=== PATIENT | male | born 1940 | race Caucasian/White ===

== ENCOUNTER 2016-04-13 12:07 | Inpatient (IN) | payer OTHER ==
[2016-04-13 13:15] LABS: % IMMATURE GRANULYOCYTES 0.6 % (0.0-1.1); ABSOLUTE IMMATURE GRANULOCYTES 0.05 10^3/uL (0.00-0.10); ADD DIFF? NO; ADD MORPH? NO; ADD SCAN? NO; ATYPICAL LYMPHOCYTE FLAG 0 (0-99); FRAGMENT RBC FLAG 0 (0-99); HEMATOCRIT 51.8 % (40.0-51.0); HEMOGLOBIN 17.2 g/dL (13.7-17.5); LEFT SHIFT FLG 0 (0-99); LIPEMIA HEMOLYSIS FLAG 80 (0-99); MEAN CELL HEMOGLOBIN 30.1 pg (27.9-34.1); MEAN CELL HEMOGLOBIN CONCENTR. 33.2 g/dL (32.4-36.7); MEAN CELL VOLUME 90.7 fL (81.5-99.8); PLATELET CLUMPS FLAG 0 (0-99); PLATELET COUNT 181 10^3/uL (150-400); RED BLOOD CELL COUNT 5.71 10^6/uL (4.40-6.38); RED CELL DISTRIBUTION WIDTH 14.2 % (11.5-15.2)
[2016-04-13 13:31] LABS: INR 1.05 (0.83-1.16); PROTIME(PATIENT) 13.4 SEC (12.0-15.0)
[2016-04-13 13:35] LABS: ALANINE AMINOTRANSFERASE 31 IU/L (21-72); ALBUMIN 3.9 g/dL (3.5-5.0); ALKALINE PHOSPHATASE 85 IU/L (38-126); ANION GAP 14 mEq/L (8-16); ASPARTATE AMINOTRANSFERASE 24 IU/L (17-59); CALCIUM 9.4 mg/dL (8.5-10.4); CARBON DIOXIDE 25 mEq/l (22-31); CHLORIDE 101 mEq/L (97-110); CREATININE 2.7 mg/dL (0.7-1.3); GLOMERULAR FILTRATION RATE 23; GLUCOSE 213 mg/dL (70-100); POTASSIUM 4.6 mEq/L (3.5-5.2); SODIUM 140 mEq/L (134-144); TOTAL PROTEIN 7.7 g/dL (6.3-8.2)
[2016-04-13 13:42] LABS: COLOR YELLOW; LEUKOCYTE ESTERASE,URINE NEGATIVE (NEGATIVE); NITRITE,URINE NEGATIVE (NEGATIVE)
--- NOTE | 2016-04-13 13:47 | UCPHY ---
H & P Patient Type: New Chief Complaint Nursing Narrative: ALTERED MENTAL STATUS NOTICED BY FAMILY LAST NIGHT AT 1030PM, C/O GARBLED SPEECH AND MISIDENTIFYING OBJECTS, BIZZARRE BEHAVIOR. PT DENIES PAIN, DENIES WEAKNESS. 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 They noticed last night that he seemed confused he kept saying he was going to go to bed but remained in his chair and repeated himself several times. They also noticed that he seemed to have a hard time word-finding. The denied any slurred speech or new extremity weakness. He states he feels fine and denies pain as well as denies any confusion at this time. The family has also noticed that he has had bilateral leg swelling. Review of systems-not entirely reliable secondary to patient's clinical condition Per family Review of systems General no fever no chills no weakness HEENT no eye pain no eye discharge. No eye redness, no sore throat Respiratory occasional cough, occasional shortness of breath Cardiac no chest pain, positive peripheral edema GI no abdominal pain, no diarrhea, no constipation, no nausea, no vomiting no flank pain, no hematuria, no dysuria Musculoskeletal no myalgias, no joint pain Heme no easy bruising, no easy bleeding Endo positive polyuria, no polydipsia Skin no rashes, no pruritus Neuro no syncope, no dizziness, no headaches Psych is no suicidal ideation, no homicidal ideation Source: Patient, Family Exam Limitations: Clinical condition - Personal History Current Tetanus/Diphtheria Vaccine: Unsure Current Tetanus Diphtheria and Acellular Pertussis (TDAP): Unsure - Medical/Surgical History Hx Asthma: No Hx Chronic Respiratory Disease: No Hx Diabetes: Yes Hx Cardiac Disease: Yes Hx Renal Disease: Yes Hx HIV/AIDS: No Hx Splenectomy or Spleen Trauma: No Other PMH: CVA, hypertension, aortic stenosis, type 2 diabetes, chronic kidney disease, BPH - Family History Significant Family History: No pertinent family hx - Social History Smoking Status: Never smoked Alcohol Use: None Drug Use: None - Physical Exam Exam: 75-year-old male very obese in no acute distress nontoxic appearance afebrile Atraumatic normocephalic Extraocular muscles intact, anicteric Neck supple, no JVD Oropharynx dry mucosa, no erythema no exudate Lungs-clear to auscultation diminished at the bases Heart regular rate and rhythm Abdomen obese bowel sounds present soft nontender Extremities 2+ pitting edema bilateral lower extremities Neuro Alert, left upper extremity and left lower extremity residual motor deficit from 2013 CVA Patient noted to have difficulty with word finding, sometimes repetitive speech and difficulty following simple instructions No new focal weakness noted Constitutional: Initial Vital Signs Temperature (C) 37.1 C 04/13/16 12:36 Heart Rate 79 04/13/16 12:36 Respiratory Rate 18 04/13/16 12:36 Blood Pressure 235/112 H 04/13/16 12:36 O2 Sat (%) 95 04/13/16 12:36 O2 Delivery Mode Room Air Allergies/Adverse Reactions: No Known Allergies Allergy (Unverified 04/13/16 12:35) Home Medications: Medication Instructions Recorded NK [No Known Home Meds] 04/13/16 Medical Decision Making Differential Diagnosis: Patient seen and evaluated for new onset of confusion that began last night around 10:00 p.m. Patient noted to be hypertensive systolic ranging 200-220 over a diastolic ranging 100-120 Patient and family currently refusing antihypertensives because on a prior occasion his blood pressure bottomed out after being given a hypertension medicine EKG left anterior fascicular block with LVH borderline prolonged QT chest x-ray with cardiomegaly and cephalization. IV established lab sent Troponin mildly elevated 0.096, no prior troponin for comparison BNP greater than 4000 CBC within normal limits is CMP elevated creatinine 2.7, creatinine from 2013 1.8 Urinalysis-not a convincing UTI will await cultures CT brain-evidence of old infarct and a some encephalomalacia, no acute infarct, no mass effect Impression Altered mental status Multifactorial Primary concern is possible acute CVA, will need MRI Patient with chronic hypertension untreated New congestive heart failure Mild hyperglycemia Plan Admit to PCU Discussed with Dr. Fermin, the hospitalist. Currently the only medication the patient has agreed to at Urgent Care is aspirin. - Data Points Laboratory Results: Laboratory Results 04/13/16 13:00 04/13/16 13:00 04/13/16 04/13/16 04/13/16 13:13 13:05 13:00 WBC RBC Hgb Hct MCV MCH MCHC RDW Plt Count MPV Neut % (Auto) Lymph % (Auto) [facility] % (Auto) Eos % (Auto) Baso % (Auto) Nucleat RBC Rel Count Absolute Neuts (auto) Absolute Lymphs (auto) Absolute Monos (auto) Absolute Eos (auto) Absolute Basos (auto) Absolute Nucleated RBC Immature Gran % Immature Gran # PT INR APTT VBG Lactic Acid 2.0 mmol/L mmol/L (0.7-2.1) Sodium Potassium Chloride Carbon Dioxide Anion Gap BUN Creatinine Estimated GFR Glucose Calcium Total Bilirubin AST ALT Alkaline Phosphatase Troponin I NT-Pro-B Natriuret Pep 4130 pg/mL H pg/mL (0-450) Total Protein Albumin Urine Color YELLOW Urine Appearance CLEAR Urine pH 6.0 (5.0-7.5) Ur Specific Gardiner 1.025 (1.002-1.030) Urine Protein 3+ H (NEGATIVE) Urine Ketones NEGATIVE (NEGATIVE) Urine Blood 1+ H (NEGATIVE) Urine Nitrate NEGATIVE (NEGATIVE) Urine Bilirubin NEGATIVE (NEGATIVE) Urine Urobilinogen 0.2 EU EU (0.2-1.0) Ur Leukocyte Esterase NEGATIVE (NEGATIVE) Urine RBC 1-3 /hpf /hpf (0-3) Urine WBC 0-1 /hpf /hpf (0-3) Ur Epithelial Cells TRACE /lpf /lpf (NONE-1+) Urine Bacteria TRACE /hpf H /hpf (NONE SEEN) Urine Glucose 1+ H (NEGATIVE) 04/13/16 04/13/16 04/13/16 13:00 13:00 13:00 WBC 8.78 10^3/uL 10^3/uL (3.80-9.50) RBC 5.71 10^6/uL 10^6/uL (4.40-6.38) Hgb 17.2 g/dL g/dL (13.7-17.5) Hct 51.8 % H % (40.0-51.0) MCV 90.7 fL fL (81.5-99.8) MCH 30.1 pg pg (27.9-34.1) MCHC 33.2 g/dL g/dL (32.4-36.7) RDW 14.2 % % (11.5-15.2) Plt Count 181 10^3/uL 10^3/uL (150-400) MPV 11.0 fL fL (8.7-11.7) Neut % (Auto) 66.8 % % (39.3-74.2) Lymph % (Auto) 19.4 % % (15.0-45.0) [facility] % (Auto) 9.0 % % (4.5-13.0) Eos % (Auto) 3.3 % % (0.6-7.6) Baso % (Auto) 0.9 % % (0.3-1.7) Nucleat RBC Rel Count 0.0 % % (0.0-0.2) Absolute Neuts (auto) 5.87 10^3/uL 10^3/uL (1.70-6.50) Absolute Lymphs (auto) 1.70 10^3/uL 10^3/uL (1.00-3.00) Absolute Monos (auto) 0.79 10^3/uL 10^3/uL (0.30-0.80) Absolute Eos (auto) 0.29 10^3/uL 10^3/uL (0.03-0.40) Absolute Basos (auto) 0.08 10^3/uL 10^3/uL (0.02-0.10) Absolute Nucleated RBC 0.00 10^3/uL 10^3/uL (0-0.01) Immature Gran % 0.6 % % (0.0-1.1) Immature Gran # 0.05 10^3/uL 10^3/uL (0.00-0.10) PT 13.4 SEC SEC (12.0-15.0) INR 1.05 (0.83-1.16) APTT 27.0 SEC SEC (23.0-38.0) VBG Lactic Acid Sodium 140 mEq/L mEq/L (134-144) Potassium 4.6 mEq/L mEq/L (3.5-5.2) Chloride 101 mEq/L mEq/L (97-110) Carbon Dioxide 25 mEq/l mEq/l (22-31) Anion Gap 14 mEq/L mEq/L (8-16) BUN 34 mg/dL H mg/dL (7-23) Creatinine 2.7 mg/dL H mg/dL (0.7-1.3) Estimated GFR 23 Glucose 213 mg/dL H mg/dL (70-100) Calcium 9.4 mg/dL mg/dL (8.5-10.4) Total Bilirubin 1.0 mg/dL mg/dL (0.1-1.4) AST 24 IU/L IU/L (17-59) ALT 31 IU/L IU/L (21-72) Alkaline Phosphatase 85 IU/L IU/L (38-126) Troponin I 0.096 ng/mL H ng/mL (0-0.034) NT-Pro-B Natriuret Pep Total Protein 7.7 g/dL g/dL (6.3-8.2) Albumin 3.9 g/dL g/dL (3.5-5.0) Urine Color Urine Appearance Urine pH Ur Specific Gardiner Urine Protein Urine Ketones Urine Blood Urine Nitrate Urine Bilirubin Urine Urobilinogen Ur Leukocyte Esterase Urine RBC Urine WBC Ur Epithelial Cells Urine Bacteria Urine Glucose Medications Given: Discontinued Medications Aspirin (Aspirin) 324 mg PO EDNOW ONE Stop: 04/13/16 14:56 Last Admin: 04/13/16 15:09 Dose: 324 mg Departure - Departure Disposition: [facility] Inpatient Acute Clinical Impression: Altered mental status Condition: Fair - PQRS PQRS Measurement: na
[2016-04-13 13:57] LABS: TROPONIN I 0.096 ng/mL (0-0.034)
[2016-04-13 14:01] LABS: WBC,URINE 0-1 /hpf (0-3)
[2016-04-13 14:02] LABS: BACTERIA TRACE /hpf (NONE SEEN)
[2016-04-13] MEDS ORDERED: ASPIRIN 81 MG CHEWABLE TAB PO ONE (14:55)
[2016-04-13] MEDS ORDERED: ONDANSETRON 4 MG/2 ML VIAL IVP PRN (19:29)
[2016-04-13] MEDS ORDERED: ONDANSETRON DISINTEGRATING 4 MG TAB PO PRN (19:29)
[2016-04-13] MEDS ORDERED: ACETAMINOPHEN 325 MG TAB PO PRN (19:29)
--- NOTE | 2016-04-13 20:06 | GHP ---
[f rep st] HISTORY AND PHYSICAL DATE OF ADMISSION: 04/13/2016 The patient is a pleasant 75-year-old gentleman with a history of CVA and hypertension, who is on no medications, who was brought to Urgent Care by his family today for increasing confusion. It sounds like he is having confusion, wondering where he was. It sounds like there may have been some word-finding difficulties, although it also sounds like there was global confusion. He has longstanding hypertension, but has not been on medications for the last 3 years. He did have a stroke, admitted to [facility], and subsequently admitted for rehab 3 years ago, although unfortunately those records are unavailable in [facility] at this time. It sounds like the patient spends most of his time in his recliner. His family has noted increasing lower extremity edema, they checked his blood sugar and it was 200, normally it is less than 150. He does have diabetes, for which he takes nothing. He has not had any falls, he denies anginal symptoms, although it sounds like he does not exert himself very much. It is not clear that he has orthopnea, as he does spend much of his time in a recliner, but he also spends some time in bed. When I speak with the patient he is minimally engaged in the interview, although he is alert, he is able to give some articulate answers, but when asked about getting more care he says "whatever you say." I discussed depression with him, and he denies depression or its symptoms, although his family notes irritability and low energy. At Urgent Care he had a noncontrast head CT which showed diffuse cerebral atrophy with periventricular and subcortical low attenuation, as well as an old right subinsular infarct. When I speak with the patient he does not appear confused, nor is he having word -finding difficulties. REVIEW OF SYSTEMS: A complete 10-point review of systems is conducted, negative except as noted in the HPI. PAST MEDICAL HISTORY: 1. Hypertension. 2. CVA. 3. Diabetes. 4. Medical noncompliance. SOCIAL HISTORY: He is a lifelong nonsmoker, nondrinker, he has worked in computers, lives in [place]. FAMILY HISTORY: His children are present at the bedside and healthy. PHYSICAL EXAM: VITAL SIGNS: Presenting vitals, his blood pressure is 201/125, pulse 79, breathing 23 times a minute, 97% on room air, temperature 37.1. GENERAL: In no acute distress. HEENT: Sclerae anicteric, oropharynx clear, mucous membranes are moist. NECK: Supple, I cannot assess JVD. LUNGS: Clear to auscultation bilaterally. HEART: S1 and S2. There is a holosystolic murmur heard best at the left upper sternal border. ABDOMEN: Obese, soft, nontender. There is 2+ lower extremity edema in the left lower extremity and 1 + lower extremity edema in the right lower extremity. His family notes his left lower extremity is always more swollen than his right. SKIN: Without rash. NEUROLOGIC: Exam shows residual left leg weakness, it is otherwise nonfocal. He is able to name objects, follow commands, repeat phrases, and his speech is fluent, articulate, and without dysarthria. LABORATORY DATA: White count 8.8, hematocrit 51.8, platelets are 181,000. INR is 1. Venous lactate is 2, sodium 140, potassium 4.6, chloride 101, bicarb 24, BUN 34, creatinine 2.7, with unknown baseline creatinine. Glucose 213, troponin 0.096, BNP is 4130. LFTs are normal, UA is notable for protein. A chest x-ray interpreted by me shows no acute cardiopulmonary disease. There is a right upper lobe nodule, a noncontrast head CT is as reported. I have discussed the case with Dr. Bhatia of Urgent Care. ASSESSMENT AND PLAN: A 75-year-old gentleman with hypertension, diabetes, and previous cerebrovascular accident, no medical care for a number of years, who presents with hypertension, possible hypertensive urgency, as well as elevated creatinine, positive troponin, and fluid overload. 1. Question hypertensive urgency. The patient has confusion, markedly elevated blood pressure. His blood pressure is lower now, he is not confused. I have started him on Imdur and hydrochlorothiazide. We will give doses tonight. I think this is a longstanding blood pressure and does not require acute intravenous lowering, it is notable his blood pressure is 235/112 on presentation. 2. Question cerebrovascular accident. I do not think this represents a neurovascular event. It is reasonable to pursue an MRI, however, his symptoms are longstanding and does not require stroke alert, nor consideration for lytics as it is well, well outside the windows. 3. Hypertension. The patient has longstanding poorly treated hypertension. His family notes that it has been refractory to medications in the past. I will now perform a renal artery ultrasound with Dopplers to evaluate for renal artery stenosis, as well as carotid arteries to evaluate for carotid stenosis. We will start him on Imdur and hydrochlorothiazide at this point in time. I believe that an VALENTINA inhibitor ultimately will be indicated for him, but it would be nice to have a sense of what is going on with his creatinine as well. 4. Edema, this is concerning for right heart failure. I suspect the patient has untreated sleep apnea. We will perform an echocardiogram, I will diurese him, I will start diuretics in the morning. 5. Right upper lobe nodules, CAT scan ordered. 6. Diabetes. I have ordered a hemoglobin A1c, I will hold off on insulin at this time. 7. Prophylaxis. Pharmacologic prophylaxis is indicated with subcutaneous heparin three times daily. /[id number]/MODL MTDD
[2016-04-13] MEDS: HYDROCHLOROTHIAZIDE 25 MG TAB PO SCH (21:00)
[2016-04-13] MEDS: ISOSORBIDE MONONITRATE 30 MG TAB.SR PO SCH (21:00)
[2016-04-13] MEDS: HEPARIN 5,000 UNIT/0.5 ML SYR SC SCH (23:35)
[2016-04-14] MEDS: ISOSORBIDE MONONITRATE 30 MG TAB.SR PO SCH (06:26)
[2016-04-14] MEDS: HEPARIN 5,000 UNIT/0.5 ML SYR SC SCH ×3 (06:28→22:13)
[2016-04-14 06:29] LABS: % IMMATURE GRANULYOCYTES 0.4 % (0.0-1.1); ABSOLUTE IMMATURE GRANULOCYTES 0.03 10^3/uL (0.00-0.10); ADD DIFF? NO; ADD MORPH? NO; ADD SCAN? NO; ATYPICAL LYMPHOCYTE FLAG 0 (0-99); FRAGMENT RBC FLAG 0 (0-99); HEMATOCRIT 47.3 % (40.0-51.0); HEMOGLOBIN 15.8 g/dL (13.7-17.5); LEFT SHIFT FLG 0 (0-99); LIPEMIA HEMOLYSIS FLAG 80 (0-99); MEAN CELL HEMOGLOBIN 30.7 pg (27.9-34.1); MEAN CELL HEMOGLOBIN CONCENTR. 33.4 g/dL (32.4-36.7); MEAN PLATELET VOLUME 11.2 fL (8.7-11.7); PLATELET CLUMPS FLAG 10 (0-99); PLATELET COUNT 156 10^3/uL (150-400); RED BLOOD CELL COUNT 5.14 10^6/uL (4.40-6.38); RED CELL DISTRIBUTION WIDTH 14.4 % (11.5-15.2)
[2016-04-14 06:56] LABS: ANION GAP 12 mEq/L (8-16); CALCIUM 9.2 mg/dL (8.5-10.4); CARBON DIOXIDE 22 mEq/l (22-31); CHLORIDE 106 mEq/L (97-110); CHOLESTEROL 184 mg/dL (140-220); CHOLESTEROL/HDL RATIO 6.81 RATIO (1.00-4.97); CREATININE 2.8 mg/dL (0.7-1.3); GLOMERULAR FILTRATION RATE 22; GLUCOSE 208 mg/dL (70-100); HIGH DENSITY LIPOPROTEIN 27 mg/dL (40-65); NON-HIGH DENSITY LIPOPROTEIN 157 mg/dL (90-129); POTASSIUM 4.6 mEq/L (3.5-5.2); SODIUM 140 mEq/L (134-144)
[2016-04-14 07:35] LABS: TRIGLYCERIDE 653 mg/dL (40-150)
[2016-04-14] MEDS: HYDROCHLOROTHIAZIDE 25 MG TAB PO SCH (08:39)
[2016-04-14] MEDS: FUROSEMIDE 40 MG/4 ML VIAL IVP SCH ×2 (08:39→14:23)
[2016-04-14] MEDS: ASPIRIN 81 MG CHEWABLE TAB PO SCH (08:39)
[2016-04-14 10:42] LABS: HEMOGLOBIN A1C 8.6 % (4.0-6.0)
[2016-04-14] MEDS: ISOSORBIDE DINITRATE 20 MG TAB PO SCH (14:23)
--- NOTE | 2016-04-14 16:19 | HOSPPROG ---
Hospitalist Progress Note Assessment/Plan: Assessment: 75-year-old male presents with acute hypertensive emergency Plan: 1. Hypertensive emergency. Evidenced by S BP of 2/120 5+ evidence of end-organ failure notably acute encephalopathy, transient myocardial ischemia, acute kidney injury -systolic blood pressures have responded to the introduction of isosorbide dinitrate and IV Lasix, continue both of these medications -give IV hydralazine for systolic blood pressures greater than 180 -encephalopathy has been improving, renal function yet to improve -patient reports intolerance to beta-blockers and Sridhar inhibitors in the outpatient setting -patient will most likely require isosorbide dinitrate and oral Lasix at time of discharge -continue monitor closely in PCU 2. Acute kidney injury on chronic kidney disease stage 3. Most likely secondary to hypertensive emergency with red blood cells on urinalysis -order outside records from primary care provider office, Dr. Shandra Castro, to compare to October lab values -etiology of underlying chronic kidney disease is BPH -creatinine marginally worsening today, treat hypertensive emergency as outlined above, repeat creatinine level in a.m. -no IV fluids 3. Pulmonary nodules. Stable on chest CT. 4. Encephalopathy. Acute, evidenced by global brain dysfunction characterized as confusion, disorientation, nonsensical speech, all of which are an acute change from patient's baseline per his , most likely secondary to hypertensive emergency as outlined above. -brain MRI demonstrating evidence of old lacunar infarct in the right posterior area as well as scattered frontal old blood products, and white matter disease -patient's mental status is improving with treatment of hypertensive emergency but he is not mentating at baseline with some evidence of thought blocking -suspect the patient also has undiagnosed element of either depression or vascular dementia resulting in poor volitional activity and poor comprehension of his limitations -that being said, the patient's presentation was clearly an acute change and worsening from his baseline, and he is yet to return to this baseline per his -get physical and occupational therapy, may require nursing home facility placement versus home health -patient is currently unsafe to discharge home at this time -initiate low-dose aspirin given his history of prior CVA -get lipid panel and hemoglobin A1c Diet. Regular diet Prophylaxis. High risk patient, heparin subcu Code. Full Disposition. Anticipated discharge is uncertain, upgraded to inpatient admission status for anticipated length stay greater than 48 hours warranting inpatient admission for reasonable medical necessity including hypertensive emergency and acute kidney injury with worsening renal function and unresolved acute encephalopathy. Subjective: Patient's reports that he still appears somewhat confused Objective: Vital Signs Temp Pulse Resp BP Pulse Ox 37.2 C 84 16 189/92 H 92 04/14/16 15:24 04/14/16 15:24 04/14/16 15:24 04/14/16 15:24 04/14/16 15:24 Laboratory Results 04/14/16 06:20 04/14/16 06:20 04/13/16 04/14/16 04/15/16 05:59 05:59 05:59 Intake Total 500 Output Total 400 Balance 100 PT 13.4 SEC (12.0-15.0) 04/13/16 13:00 INR 1.05 (0.83-1.16) 04/13/16 13:00 - Time Spent With Patient Time Spent with Patient: greater than 35 minutes Time Spent with Patient: Greater than 35 minutes spent on this patients care, greater than 50% of time spent counseling, educating, and coordinating care regarding the above mentioned plan. - Physical Exam Constitutional: no apparent distress, not in pain, obese, No uncomfortable Cardiovascular: edema (Trace bilateral lower extremities), No systolic murmur, No irregularly irregular, No tachycardia Respiratory: no respiratory distress, no rales or rhonchi, clear to auscultation Gastrointestinal: normoactive bowel sounds, soft, non-tender abdomen, no palpable masses Neurologic: AAOx3, sensation intact bilaterally, CN II-XII Intact, No weakness, No facial droop Psychiatric: not anxious, poor insight, poor judgement, other (Concentration 7/ 7 but evidence of thought blocking), No agitated ICD10 Worksheet Patient Problems: Problems Problem Status Onset Altered mental status Acute
--- NOTE | 2016-04-14 17:07 | ECHO ---
[id number] + + [address] : : [place] [address] : : [phone] + Adult Echocardiographic Report + ------+ :Name: JILL PATEL RStudy Date: 04/14/2016 07:34 AM BP: 188/108 mmH g : : Hospital Admission Number: [id number] Locatio n: 220: :: 1940 Gender: Male Height: 69 in : :Age: 75 yrs Race: WH Weight: 219 lb : :Reason For Study: edema htn : : BSA: 2.1 meters 2 : :History: edema, uncontrolled HTN : + ------+ MMode/2D Measurements \T\ Calculations IVSd: 1.6 cm LVIDd: 4.7 cm FS: 31.0 % Ao root diam: LVPWd: 1.5 cm LVIDs: 3.2 cm EDV(Teich): 3.6 cm 102.1 ml LA dimension: ESV(Teich): 42.2 ml 4.0 cm EF(Teich): 58.7 % LVOT diam: LVLd ap4: 10.5 cm SV(MOD-sp4): 2.0 cm EDV(MOD-sp4): 101.0 ml LVOT area: 190.0 ml 3.3 cm2 LVLs ap4: 9.6 cm ESV(MOD-sp4): 89.0 ml EF(MOD-sp4): 53.2 % Normal Measurement Values: + + :LVIDd (3.5-5.7cm) IVSd (0.6-1.1cm) LVPWd (0.6-1.1cm) Aortic Root (2.0-3.7cm)Left Atrium (1.5-4.0cm): :LV Vol(d) (76-115ml) LV Vol(s) (29-48ml) Ejec Fraction (50-65%)PV Forrest (0.6- 1.2m/s) TV Forrest (0.4-1.0m/s) : :MV E Forerst (0.8-1.0m/s)MV A Forrest (0.3-1.0m/s)LVOT Forrest (0.7-1.2m/s) Asc Ao Forrest ( 0.9-1.8m/s) : + + Doppler Measurements \T\ Calculations MV E max forrest: Ao mean PG: AI max forrest: LV V1 mean P.1 cm/sec 23.5 mmHg 341.6 cm/sec 2.3 mmHg MV A max forrest: Ao V2 mean: AI max P.7 mmHg LV V1 mean: 121.4 cm/sec 231.3 cm/sec AI dec slope: 72.0 cm/sec MV E/A: 0.59 Ao V2 VTI: 56.4 cm208.2 cm/sec2 LV V1 VTI: ALISON(I,D): 1.2 cm2 AI P1/2t: 480.7 msec 20.5 cm SV(LVOT): 67.1 ml PA V2 max: TR max forrest: 116.7 cm/sec 202.0 cm/sec PA max PG: TR max P.3 mmHg 5.5 mmHg RAP systole: 5.0 mmHg RVSP(TR): 21.3 mmHg Left Ventricle The left ventricle is normal in size. There is moderate concentric left ventricular hypertrophy. Left ventricular systolic function is low normal. Ejection Fraction = 50-55%. There is Doppler evidence for diastolic dysfunction. No regional wall motion abnormalities noted. Right Ventricle The right ventricle is normal in size and function. Atria The left atrium is mildly dilated. The Left Atrial Volume is 31 ml/m2. Right atrial size is normal. Mitral Valve The mitral valve leaflets appear thickened, but open well. There is no mitral valve stenosis. There is trace to mild mitral regurgitation. Tricuspid Valve The tricuspid valve is normal in structure and function. There is no tricuspid stenosis. There is trace to mild tricuspid regurgitation. Right ventricular systolic pressure is 21mmHg. Aortic Valve The aortic valve is trileaflet. Moderate Aortic Valve Calcification. Mild to moderate valvular aortic stenosis. 23/34 mean/max pressure gradients, peak velocity 2.9m/sec and ALISON 1.2cm2. Mild to moderate aortic regurgitation. Pulmonic Valve The pulmonic valve is normal in structure and function. trace to mild pulmonic valvular regurgitation. Great Vessels The aortic root is normal size. Pericardium/Pleural trivial pericardial effusion. Conclusion A two-dimensional transthoracic echocardiogram with M-mode and Doppler was performed. Left ventricular systolic function is low normal. Ejection Fraction = 50-55%. There is moderate concentric left ventricular hypertrophy. There is Doppler evidence for diastolic dysfunction. The left atrium is mildly dilated. The Left Atrial Volume is 31 ml/m2. There is trace to mild mitral regurgitation. There is trace to mild tricuspid regurgitation. Right ventricular systolic pressure is 21mmHg. Moderate Aortic Valve Calcification Mild to moderate valvular aortic stenosis. Mild to moderate aortic regurgitation. 23/34 mean/max pressure gradients, peak velocity 2.9m/sec and ALISON 1.2cm2. Trace to mild pulmonic valvular regurgitation. Trivial pericardial effusion. Final Reading Physician: Yan Colon signed on 04/14/2016 05:05 PM Ordering Physician: Brayden Fermin Performed By: Ira Sanchez
[2016-04-14] MEDS: hydrALAZINE 20 MG/ML VIAL IVP PRN (23:07)
[2016-04-15] MEDS: HEPARIN 5,000 UNIT/0.5 ML SYR SC SCH ×3 (04:35→22:29)
[2016-04-15] MEDS: hydrALAZINE 20 MG/ML VIAL IVP PRN (04:38)
[2016-04-15 05:24] LABS: ANION GAP 14 mEq/L (8-16); CALCIUM 9.4 mg/dL (8.5-10.4); CARBON DIOXIDE 23 mEq/l (22-31); CHLORIDE 101 mEq/L (97-110); GLOMERULAR FILTRATION RATE 21; GLUCOSE 251 mg/dL (70-100); SODIUM 138 mEq/L (134-144)
[2016-04-15] MEDS: ISOSORBIDE DINITRATE 20 MG TAB PO SCH ×2 (08:16→13:42)
[2016-04-15] MEDS: FUROSEMIDE 40 MG/4 ML VIAL IVP SCH (08:16)
[2016-04-15] MEDS: ASPIRIN 81 MG CHEWABLE TAB PO SCH (08:17)
--- NOTE | 2016-04-15 09:43 | HOSPPROG ---
Hospitalist Progress Note Assessment/Plan: 75 yo M w htn admitted w encephalopathy htn: marginally improved goal 150/90 add nifedipine degree of not contraindication to nitrate bph: recent incontinence w h.o bph and remote turp 1. add flomax 2. us not c/w infection dm: a1c 8.6 c/w poor control add low dose glipizide elevated trop: likely strain from elevated htn on asa no need for statin proph: sc heparin dispo: will need snf pulm nodule: cxr overcall encephalopathy: likely htn Subjective: tele: no events (interp by me). case d/w dr hutchins Objective: Vital Signs Temp Pulse Resp BP Pulse Ox 36.7 C 91 18 177/77 H 90 L 04/15/16 08:00 04/15/16 08:00 04/15/16 08:00 04/15/16 08:00 04/15/16 08:00 Laboratory Results 04/14/16 06:20 04/15/16 04:42 04/14/16 04/15/16 04/16/16 05:59 05:59 05:59 Intake Total 500 1750 Output Total 400 Balance 100 1750 PT 13.4 SEC (12.0-15.0) 04/13/16 13:00 INR 1.05 (0.83-1.16) 04/13/16 13:00 - Physical Exam Constitutional: no apparent distress, appears nourished Eyes: PERRL, anicteric sclera Ears, Nose, Mouth, Throat: moist mucous membranes, hearing normal Cardiovascular: regular rate and rhythym, no murmur, rub, or gallop, systolic murmur Respiratory: no respiratory distress, no rales or rhonchi Gastrointestinal: normoactive bowel sounds, soft, non-tender abdomen Genitourinary: no bladder fullness, No mena in urethra Skin: warm, normal color Musculoskeletal: full muscle strength, no muscle tenderness Neurologic: AAOx3 ICD10 Worksheet Patient Problems: Problems Problem Status Onset Altered mental status Acute
[2016-04-15] MEDS: NIFEdipine ER 60 MG TAB PO SCH (10:51)
[2016-04-15] MEDS: TAMSULOSIN HCL 0.4 MG CAP PO SCH (10:51)
[2016-04-15] MEDS: glipiZIDE 5 MG TAB PO SCH ×2 (10:51→18:05)
--- NOTE | 2016-04-15 13:00 | PDGENHP ---
History and Physical - Chief Complaint CKD, HTN - History of Present Illness Mr. Shah is a 75 yo M with longstanding history of HTN, DM and medical noncompliance who was admitted with confusion and noted to have uncontrolled HTN. Pt states that he has had HTN for decades, not on any medication currently for it because no regimen was able to keep in controlled in the past. He states he does not believe in medication. He also has not been taking anything for DM, which he has had for about 10 years. He notes he had a TURP done about ten years ago, and at that time was told his Cr was elevated and "would always be high," so he didn't feel too worried about it. He presented with new onset confusion that started on Monday and peristed on Monday, so his family brought him in. He has a h/o stroke, but head CT and MRI showed no new stroke. His SBP was in the 220s on arrival, now is down to 170s. He is being started on nifedipine today, already SBP down to 150s. He states he feels fine and wants to go home, is very reluctant to take medication. His daughter notes that his last known Cr was 1.7, although not sure when that was. History Information - Allergies/Home Medication List Allergies/Adverse Reactions: No Known Allergies Allergy (Unverified 04/13/16 12:35) Home Medications: NK [No Known Home Meds] 04/13/16 [Last Taken Unknown] I have personally reviewed and updated: medical history - Past Medical History Additional medical history: DMII. HTN. CVA - Surgical History Additional surgical history: TURP - Family History Additional family history: no renal disease - Social History Smoking Status: Never smoked Alcohol Use: None Drug Use: None Review of Systems ROS: 10pt was reviewed & negative except for what was stated in HPI & below Physical Exam Temp Pulse Resp BP Pulse Ox 37.0 C 82 20 157/91 H 92 04/15/16 12:00 04/15/16 12:00 04/15/16 12:00 04/15/16 12:00 04/15/16 12:00 O2 (L/minute) 1 Constitutional: no apparent distress, appears nourished, not in pain Eyes: PERRL, anicteric sclera, EOMI Ears, Nose, Mouth, Throat: moist mucous membranes, no oral mucosal ulcers Cardiovascular: regular rate and rhythym, pulses symmetric bilaterally Peripheral Pulses: 2+: dorsalis-pedis (R), dorsalis-pedis (L) Respiratory: no respiratory distress, no rales or rhonchi, clear to auscultation Gastrointestinal: normoactive bowel sounds, soft, non-tender abdomen Skin: warm, no rashes or abrasions Musculoskeletal: no muscle tenderness, normal joint ROM Neurologic: AAOx3, CN II-XII Intact, No asterixes Psychiatric: interacting appropriately, not anxious, not encephalopathic Lab Data & Imaging Review 04/14/16 06:20 04/15/16 04:42 WBC 7.93 10^3/uL (3.80-9.50) 04/14/16 06:20 RBC 5.14 10^6/uL (4.40-6.38) 04/14/16 06:20 Hgb 15.8 g/dL (13.7-17.5) 04/14/16 06:20 Hct 47.3 % (40.0-51.0) 04/14/16 06:20 MCV 92.0 fL (81.5-99.8) 04/14/16 06:20 MCH 30.7 pg (27.9-34.1) 04/14/16 06:20 MCHC 33.4 g/dL (32.4-36.7) 04/14/16 06:20 RDW 14.4 % (11.5-15.2) 04/14/16 06:20 Plt Count 156 10^3/uL (150-400) 04/14/16 06:20 MPV 11.2 fL (8.7-11.7) 04/14/16 06:20 Neut % (Auto) 62.8 % (39.3-74.2) 04/14/16 06:20 Lymph % (Auto) 22.7 % (15.0-45.0) 04/14/16 06:20 [place] % (Auto) 8.7 % (4.5-13.0) 04/14/16 06:20 Eos % (Auto) 4.3 % (0.6-7.6) 04/14/16 06:20 Baso % (Auto) 1.1 % (0.3-1.7) 04/14/16 06:20 Nucleat RBC Rel Count 0.0 % (0.0-0.2) 04/14/16 06:20 Absolute Neuts (auto) 4.98 10^3/uL (1.70-6.50) 04/14/16 06:20 Absolute Lymphs (auto) 1.80 10^3/uL (1.00-3.00) 04/14/16 06:20 Absolute Monos (auto) 0.69 10^3/uL (0.30-0.80) 04/14/16 06:20 Absolute Eos (auto) 0.34 10^3/uL (0.03-0.40) 04/14/16 06:20 Absolute Basos (auto) 0.09 10^3/uL (0.02-0.10) 04/14/16 06:20 Absolute Nucleated RBC 0.00 10^3/uL (0-0.01) 04/14/16 06:20 Immature Gran % 0.4 % (0.0-1.1) 04/14/16 06:20 Immature Gran # 0.03 10^3/uL (0.00-0.10) 04/14/16 06:20 PT 13.4 SEC (12.0-15.0) 04/13/16 13:00 INR 1.05 (0.83-1.16) 04/13/16 13:00 APTT 27.0 SEC (23.0-38.0) 04/13/16 13:00 VBG Lactic Acid 2.0 mmol/L (0.7-2.1) 04/13/16 13:00 Sodium 138 mEq/L (134-144) 04/15/16 04:42 Potassium 4.0 mEq/L (3.5-5.2) 04/15/16 04:42 Chloride 101 mEq/L (97-110) 04/15/16 04:42 Carbon Dioxide 23 mEq/l (22-31) 04/15/16 04:42 Anion Gap 14 mEq/L (8-16) 04/15/16 04:42 BUN 47 mg/dL (7-23) H 04/15/16 04:42 Creatinine 3.0 mg/dL (0.7-1.3) H 04/15/16 04:42 Estimated GFR 21 03/10/17 04:42 Glucose 251 mg/dL (70-100) H 04/15/16 04:42 Hemoglobin A1c 8.6 % (4.0-6.0) H 04/14/16 06:20 Estim Average Glucose 200 mg/dL (68-126) H 04/14/16 06:20 Calcium 9.4 mg/dL (8.5-10.4) 04/15/16 04:42 Total Bilirubin 1.0 mg/dL (0.1-1.4) 04/13/16 13:00 AST 24 IU/L (17-59) 04/13/16 13:00 ALT 31 IU/L (21-72) 04/13/16 13:00 Alkaline Phosphatase 85 IU/L (38-126) 04/13/16 13:00 Troponin I 0.116 ng/mL (0-0.034) H 04/13/16 20:45 NT-Pro-B Natriuret Pep 4130 pg/mL (0-450) H 04/13/16 13:05 Total Protein 7.7 g/dL (6.3-8.2) 04/13/16 13:00 Albumin 3.9 g/dL (3.5-5.0) 04/13/16 13:00 Triglycerides 653 mg/dL (40-150) H 04/14/16 06:20 Cholesterol 184 mg/dL (140-220) 04/14/16 06:20 Cholesterol Risk Factr 1.6 (0.2-1.0) H 04/14/16 06:20 LDL Cholesterol, Calc TNP 04/14/16 06:20 LDL Risk Factor TNP 04/14/16 06:20 VLDL Cholesterol TNP 04/14/16 06:20 Non-HDL Cholesterol 157 mg/dL (90-129) H 04/14/16 06:20 HDL Cholesterol 27 mg/dL (40-65) L 04/14/16 06:20 LDL/HDL Ratio TNP 04/14/16 06:20 Cholesterol/HDL Ratio 6.81 RATIO (1.00-4.97) H 04/14/16 06:20 TSH 10.100 uIU/mL (0.465-4.680) H 04/14/16 06:20 Urine Color YELLOW 04/13/16 13:13 Urine Appearance CLEAR 04/13/16 13:13 Urine pH 6.0 (5.0-7.5) 04/13/16 13:13 Ur Specific Colp 1.025 (1.002-1.030) 04/13/16 13:13 Urine Protein 3+ (NEGATIVE) H 04/13/16 13:13 Urine Ketones NEGATIVE (NEGATIVE) 04/13/16 13:13 Urine Blood 1+ (NEGATIVE) H 04/13/16 13:13 Urine Nitrate NEGATIVE (NEGATIVE) 04/13/16 13:13 Urine Bilirubin NEGATIVE (NEGATIVE) 04/13/16 13:13 Urine Urobilinogen 0.2 EU (0.2-1.0) 04/13/16 13:13 Ur Leukocyte Esterase NEGATIVE (NEGATIVE) 04/13/16 13:13 Urine RBC 1-3 /hpf (0-3) 04/13/16 13:13 Urine WBC 0-1 /hpf (0-3) 04/13/16 13:13 Ur Epithelial Cells TRACE /lpf (NONE-1+) 04/13/16 13:13 Urine Bacteria TRACE /hpf (NONE SEEN) H 04/13/16 13:13 Urine Glucose 1+ (NEGATIVE) H 04/13/16 13:13 Assessment & Plan Assessment: Assessment/Plan: CKD stage IV: pt has longstanding CKD, unknown recent baseline but likely has CKD stage IV. US does not show JAIME, likely is due to longstanding uncontrolled HTN and possibly DM. He has not previously seen a etymology teacher. - No emergent need for HD. - Will check a urine PCR. - Will plan further workup in clinic. - Will arrange for clinic f/u. - Please avoid MOM, morphine, demerol, NSAIDs, contrast, aminoglycosides, fleets, and other nephrotoxins. HTN: uncontrolled, previously on no meds, improving now. - Agree with current regimen. - Will continue to monitor. - Would avoid diuretics or ACEI/ARB for now. Thank you for the interesting consult. Nephrology will continue to follow, please call if you have any additional questions or concerns.
[2016-04-16 05:30] LABS: ANION GAP 14 mEq/L (8-16); CALCIUM 9.3 mg/dL (8.5-10.4); CARBON DIOXIDE 24 mEq/l (22-31); CHLORIDE 98 mEq/L (97-110); CREATININE 3.5 mg/dL (0.7-1.3); GLOMERULAR FILTRATION RATE 17; GLUCOSE 196 mg/dL (70-100); POTASSIUM 4.3 mEq/L (3.5-5.2); SODIUM 136 mEq/L (134-144)
[2016-04-16] MEDS: HEPARIN 5,000 UNIT/0.5 ML SYR SC SCH ×3 (06:18→21:33)
[2016-04-16] MEDS: LEVOTHYROXINE 50 MCG TAB PO SCH (06:18)
[2016-04-16] MEDS: ASPIRIN 81 MG CHEWABLE TAB PO SCH (08:21)
[2016-04-16] MEDS: glipiZIDE 5 MG TAB PO SCH ×2 (08:21→17:59)
[2016-04-16] MEDS: TAMSULOSIN HCL 0.4 MG CAP PO SCH (08:22)
[2016-04-16] MEDS: ISOSORBIDE DINITRATE 20 MG TAB PO SCH ×2 (08:22→16:02)
[2016-04-16] MEDS: NIFEdipine ER 60 MG TAB PO SCH (08:22)
[2016-04-16] MEDS ORDERED: NS 1,000 ML IV SCH (09:00)
--- NOTE | 2016-04-16 09:07 | HOSPPROG ---
Hospitalist Progress Note Assessment/Plan: 75 yo M w htn admitted w encephalopathy htn: improved on nifedipine continue nifedipine and nitrate degree of not contraindication to nitrate bph: recent incontinence w h.o bph and remote turp 1. add flomax 2. us not c/w infection renal: cr increasing as he has been diuresed he did have edema but suspect he was never really that volume overloaded give 1 L NS this precludes safe dc today thyroid: low dose synthroid started dm: a1c 8.6 c/w poor control add low dose glipizide elevated trop: likely strain from elevated htn on asa no need for statin proph: sc heparin dispo: will need snf pulm nodule: cxr overcall encephalopathy: likely htn Subjective: case d/w dr harris. tele: sinus at 180 w activity (interp by me). cr increasing Objective: Vital Signs Temp Pulse Resp BP Pulse Ox 37.1 C 90 18 157/90 H 92 04/16/16 07:42 04/16/16 07:42 04/16/16 07:42 04/16/16 07:42 04/16/16 07:42 Laboratory Results 04/14/16 06:20 04/16/16 04:43 04/15/16 04/16/16 04/17/16 05:59 05:59 06:59 Intake Total 1750 200 Balance 1750 200 PT 13.4 SEC (12.0-15.0) 04/13/16 13:00 INR 1.05 (0.83-1.16) 04/13/16 13:00 - Physical Exam Constitutional: no apparent distress, appears nourished Eyes: PERRL, anicteric sclera Ears, Nose, Mouth, Throat: moist mucous membranes, hearing normal Cardiovascular: regular rate and rhythym, no murmur, rub, or gallop Respiratory: no respiratory distress, no rales or rhonchi Gastrointestinal: normoactive bowel sounds, soft, non-tender abdomen Genitourinary: No mena in urethra Skin: warm, normal color Musculoskeletal: full muscle strength, no muscle tenderness Neurologic: AAOx3 Psychiatric: interacting appropriately ICD10 Worksheet Patient Problems: Problems Problem Status Onset Altered mental status Acute
--- NOTE | 2016-04-16 09:43 | CPEKG ---
Heart Rate: 95 RR Interval: 632 P-R Interval: 176 QRSD Interval: 88 QT Interval: 408 QTC Interval: 513 P [place]: 24 QRS [place]: -52 T Wave [place]: 117 EKG Severity - ABNORMAL ECG - EKG Impression: SINUS RHYTHM EKG Impression: LEFT ANTERIOR FASCICULAR BLOCK EKG Impression: LVH WITH SECONDARY REPOLARIZATION ABNORMALITY EKG Impression: PROLONGED QT INTERVAL Electronically Signed By: Bella Rivera 16-Apr-2016 16:59:56
--- NOTE | 2016-04-16 11:54 | SOAPPROG ---
SOAP Progress Note Assessment/Plan: Assessment: 1. TAWANDA - -Non-oliguric TAWANDA -Creat climbing since admit, possibly from lasix, but also could be either direct HTNive injury or relative hypotension with resolution of chronic uncontrolled HTN -No emergent need for HD -Holding diuretics and giving back 1L IVF today, agree with this -Should level off with time to recover from above potential insults -Avoid MOM, morphine, demerol, NSAIDs, contrast, aminoglycosides, fleets, and other nephrotoxins. 2. HTN - -Chronically uncontrolled, previously on no meds, improving now. -Would avoid diuretics or ACEI/ARB for now. -Proteinuria check pending, likely does need to begin VALENTINA for chronic mgmt -May eventually need diuretic given the diastolic dysfunction seen on echo 3. CKD stage IV - -Pt has longstanding CKD, unknown recent baseline but likely CKD stage IV. -US does not show JAIME, likely due to longstanding uncontrolled HTN and possibly DM. He has not previously seen a data manager. -Urine pro:cr pending -Needs outpt renal follow-up Plan: 04/16/16 11:50 04/16/16 11:54 Subjective: No complaints Objective: Vital Signs Temp Pulse Resp BP Pulse Ox 36.7 C 90 20 127/76 H 92 04/16/16 11:29 04/16/16 11:29 04/16/16 11:29 04/16/16 11:29 04/16/16 11:29 Laboratory Results 04/14/16 06:20 04/16/16 04:43 04/15/16 04/16/16 04/17/16 05:59 05:59 06:59 Intake Total 1750 200 Balance 1750 200 PT 13.4 SEC (12.0-15.0) 04/13/16 13:00 INR 1.05 (0.83-1.16) 04/13/16 13:00 Physical Exam - Physical Exam General Appearance: WD/WN, no apparent distress Respiratory: lungs clear Cardiac/Chest: regular rate, rhythm, systolic murmur (RUSB) Abdomen: non-tender, soft Extremities: No swelling ICD10 Worksheet Patient Problems: Problems Problem Status Onset Altered mental status Acute
[2016-04-17] MEDS: HEPARIN 5,000 UNIT/0.5 ML SYR SC SCH ×3 (05:44→21:24)
[2016-04-17] MEDS: LEVOTHYROXINE 50 MCG TAB PO SCH (05:44)
[2016-04-17] MEDS: NIFEdipine ER 60 MG TAB PO SCH (08:58)
[2016-04-17] MEDS: ASPIRIN 81 MG CHEWABLE TAB PO SCH (08:58)
[2016-04-17] MEDS: TAMSULOSIN HCL 0.4 MG CAP PO SCH (08:59)
[2016-04-17] MEDS: ISOSORBIDE DINITRATE 20 MG TAB PO SCH ×2 (08:59→15:13)
[2016-04-17] MEDS: glipiZIDE 5 MG TAB PO SCH ×2 (08:59→17:35)
[2016-04-17 12:08] LABS: ANION GAP 14 mEq/L (8-16); CALCIUM 8.4 mg/dL (8.5-10.4); CARBON DIOXIDE 21 mEq/l (22-31); CHLORIDE 97 mEq/L (97-110); CREATININE 3.5 mg/dL (0.7-1.3); GLOMERULAR FILTRATION RATE 17; GLUCOSE 322 mg/dL (70-100); POTASSIUM 4.4 mEq/L (3.5-5.2); SODIUM 132 mEq/L (134-144)
--- NOTE | 2016-04-17 12:09 | HOSPPROG ---
Hospitalist Progress Note Assessment/Plan: 75 yo M w htn admitted w encephalopathy htn: improved on nifedipine continue nifedipine and nitrate degree of not contraindication to nitrate bph: recent incontinence w h.o bph and remote turp 1. add flomax 2. us not c/w infection renal: cr increasing as he has been diuresed he did have edema but suspect he was never really that volume overloaded give 1 L NS repeat cr pending thyroid: low dose synthroid started dm: a1c 8.6 c/w poor control add low dose glipizide increase to 5 bid given current blood sugars toe pain: exam not c/w gout check film abd cramp: check ekg and trop elevated trop: likely strain from elevated htn on asa no need for statin proph: sc heparin dispo: will need snf pulm nodule: cxr overcall encephalopathy: likely htn Subjective: tele: no events x sinus tach (interp by me). c/o L great toe pain Objective: Vital Signs Temp Pulse Resp BP Pulse Ox 36.7 C 91 17 147/76 H 93 04/17/16 08:08 04/17/16 08:08 04/17/16 08:08 04/17/16 08:08 04/17/16 08:08 Laboratory Results 04/14/16 06:20 04/16/16 04/17/16 04/18/16 04:59 05:59 05:59 Intake Total Output Total Balance PT 13.4 SEC (12.0-15.0) 04/13/16 13:00 INR 1.05 (0.83-1.16) 04/13/16 13:00 - Physical Exam Constitutional: no apparent distress, appears nourished Eyes: PERRL, anicteric sclera Ears, Nose, Mouth, Throat: moist mucous membranes, hearing normal Cardiovascular: regular rate and rhythym, no murmur, rub, or gallop Respiratory: no respiratory distress, no rales or rhonchi Gastrointestinal: normoactive bowel sounds, soft, non-tender abdomen Genitourinary: No mena in urethra Skin: warm, normal color Musculoskeletal: other (L great toe tender w flexion but no joint effusion) Neurologic: AAOx3, sensation intact bilaterally Psychiatric: interacting appropriately ICD10 Worksheet Patient Problems: Problems Problem Status Onset Altered mental status Acute
[2016-04-17 13:06] LABS: TROPONIN I 0.302 ng/mL (0-0.034)
[2016-04-17] MEDS ORDERED: NS 1,000 ML IV SCH (14:15)
--- NOTE | 2016-04-17 18:22 | SOAPPROG ---
SOAP Progress Note Assessment/Plan: Assessment: 1. TAWANDA - -Non-oliguric TWAANDA -Creat climbed to 3.5 since admit, possibly from lasix, but also could be either direct HTNive injury or relative hypotension with resolution of chronic uncontrolled HTN -No emergent need for HD -Now creat stable at 3.5 -May be in plateau phase for some time but expect he will begin to recover now with improved BP control -Hold further diuretics for now -Avoid MOM, morphine, demerol, NSAIDs, contrast, aminoglycosides, fleets, and other nephrotoxins. 2. HTN - -Chronically uncontrolled, previously on no meds, improved now. -Would avoid diuretics or ACEI/ARB for now. -Proteinuria check pending, likely does need to begin VALENTINA for chronic mgmt -May eventually need diuretic given the diastolic dysfunction seen on echo 3. CKD stage IV - -Pt has longstanding CKD, unknown recent baseline but likely CKD stage IV. -US does not show JAIME, likely due to longstanding uncontrolled HTN and possibly DM. He has not previously seen a cabinet worker. -Urine pro:cr pending -Needs outpt renal follow-up Plan: 04/17/16 18:21 Subjective: No c/o Objective: Vital Signs Temp Pulse Resp BP Pulse Ox 36.6 C 88 17 126/70 H 94 04/17/16 16:00 04/17/16 16:00 04/17/16 16:00 04/17/16 16:00 04/17/16 16:00 Laboratory Results 04/14/16 06:20 04/17/16 10:50 04/16/16 04/17/16 04/18/16 04:59 05:59 05:59 Intake Total Output Total Balance PT 13.4 SEC (12.0-15.0) 04/13/16 13:00 INR 1.05 (0.83-1.16) 04/13/16 13:00 Physical Exam - Physical Exam General Appearance: WD/WN, alert, no apparent distress Respiratory: lungs clear, normal breath sounds Cardiac/Chest: regular rate, rhythm Abdomen: non-tender, soft Extremities: swelling (trace LE edema) ICD10 Worksheet Patient Problems: Problems Problem Status Onset Altered mental status Acute
[2016-04-18 01:50] LABS: % IMMATURE GRANULYOCYTES 0.8 % (0.0-1.1); ADD DIFF? NO; ADD MORPH? NO; ADD SCAN? NO; ATYPICAL LYMPHOCYTE FLAG 0 (0-99); FRAGMENT RBC FLAG 0 (0-99); HEMATOCRIT 42.3 % (40.0-51.0); HEMOGLOBIN 14.4 g/dL (13.7-17.5); LEFT SHIFT FLG 0 (0-99); LIPEMIA HEMOLYSIS FLAG 90 (0-99); MEAN CELL HEMOGLOBIN 30.6 pg (27.9-34.1); MEAN CELL VOLUME 89.8 fL (81.5-99.8); MEAN PLATELET VOLUME 11.1 fL (8.7-11.7); PLATELET CLUMPS FLAG 0 (0-99); PLATELET COUNT 176 10^3/uL (150-400); RED BLOOD CELL COUNT 4.71 10^6/uL (4.40-6.38)
[2016-04-18 01:54] LABS: COLOR PALE YELLOW; LEUKOCYTE ESTERASE,URINE NEGATIVE (NEGATIVE); NITRITE,URINE NEGATIVE (NEGATIVE)
[2016-04-18 02:02] LABS: ANION GAP 12 mEq/L (8-16); CALCIUM 8.6 mg/dL (8.5-10.4); CARBON DIOXIDE 21 mEq/l (22-31); CHLORIDE 101 mEq/L (97-110); CREATININE 3.2 mg/dL (0.7-1.3); GLOMERULAR FILTRATION RATE 19; GLUCOSE 252 mg/dL (70-100); POTASSIUM 4.6 mEq/L (3.5-5.2); SODIUM 134 mEq/L (134-144)
[2016-04-18 02:04] LABS: MUCUS TRACE /lpf (NONE-1+)
[2016-04-18] MEDS: LEVOTHYROXINE 50 MCG TAB PO SCH (06:13)
[2016-04-18] MEDS: HEPARIN 5,000 UNIT/0.5 ML SYR SC SCH ×2 (06:13→15:19)
[2016-04-18] MEDS: ASPIRIN 81 MG CHEWABLE TAB PO SCH (08:10)
[2016-04-18] MEDS: ISOSORBIDE DINITRATE 20 MG TAB PO SCH ×2 (08:10→15:19)
[2016-04-18] MEDS: NIFEdipine ER 60 MG TAB PO SCH (08:19)
[2016-04-18] MEDS: TAMSULOSIN HCL 0.4 MG CAP PO SCH (08:20)
[2016-04-18] MEDS: glipiZIDE 5 MG TAB PO SCH ×2 (08:20→17:49)
--- NOTE | 2016-04-18 10:59 | SOAPPROG ---
SOAP Progress Note Assessment/Plan: Assessment: 1. TAWANDA on CKD Likely acute and chronic hypertensive injury. Cr down slightly. I reviewed his GFR with them. Urged nephrology follow up. 2. Malignant HTN He is at an appropriate BP for now. Will need further titration over time. 3. Weakness Suspect this is due to intermittant A fib. He likely has severe diastolic dysfunction, and will tolerated rapid HR poorly. May benefit from beta blockade. Spent time in counseling. Plan: 04/18/16 10:52 Subjective: Feels weak Objective: Vital Signs Temp Pulse Resp BP Pulse Ox 37.7 C 128 H 20 143/65 H 93 04/18/16 07:35 04/18/16 07:35 04/18/16 07:35 04/18/16 07:35 04/18/16 07:35 Laboratory Results 04/18/16 01:35 04/18/16 01:35 04/17/16 04/18/16 04/19/16 05:59 05:59 05:59 Intake Total 1830 Output Total Balance 1830 PT 13.4 SEC (12.0-15.0) 04/13/16 13:00 INR 1.05 (0.83-1.16) 04/13/16 13:00 Physical Exam - Physical Exam General Appearance: no apparent distress Respiratory: lungs clear Cardiac/Chest: regular rate, rhythm, systolic murmur Abdomen: non-tender Extremities: pedal edema (trace) Neuro/Psych: depressed affect ICD10 Worksheet Patient Problems: Problems Problem Status Onset Altered mental status Acute
--- NOTE | 2016-04-18 11:19 | CPEKG ---
Heart Rate: 87 RR Interval: 690 P-R Interval: 188 QRSD Interval: 88 QT Interval: 396 QTC Interval: 477 P [place]: 56 QRS [place]: -51 T Wave [place]: 143 EKG Severity - ABNORMAL ECG - EKG Impression: SINUS RHYTHM EKG Impression: LEFT ANTERIOR FASCICULAR BLOCK EKG Impression: LVH WITH SECONDARY REPOLARIZATION ABNORMALITY EKG Impression: BORDERLINE PROLONGED QT INTERVAL Electronically Signed By: Calderon Fried 19-Apr-2016 09:31:11
--- NOTE | 2016-04-18 17:17 | HOSPPROG ---
Hospitalist Progress Note Assessment/Plan: 75 yo M w htn admitted w encephalopathy AF: add BB eliquis 2.5 bid given high chads vasc paroxysmal htn: improved on nifedipine continue nifedipine and nitrate degree of not contraindication to nitrate bph: recent incontinence w h.o bph and remote turp 1. add flomax 2. us not c/w infection renal: cr increasing as he has been diuresed he did have edema but suspect he was never really that volume overloaded give 1 L NS repeat cr has stabilized thyroid: low dose synthroid started dm: a1c 8.6 c/w poor control add low dose glipizide increase to 5 bid given current blood sugars toe pain: exam not c/w gout check film abd cramp: check ekg and trop elevated trop: likely strain from elevated htn on asa no need for statin proph: sc heparin dispo: will need snf pulm nodule: cxr overcall encephalopathy: likely htn Subjective: rapid AF on monitor (interp by me). case d/w dr bright Objective: Vital Signs Temp Pulse Resp BP Pulse Ox 36.9 C 89 20 138/66 H 91 L 04/18/16 15:20 04/18/16 15:20 04/18/16 15:20 04/18/16 15:20 04/18/16 15:20 Laboratory Results 04/18/16 01:35 04/18/16 01:35 04/17/16 04/18/16 04/19/16 05:59 05:59 05:59 Intake Total 1830 300 Output Total Balance 1830 300 PT 13.4 SEC (12.0-15.0) 04/13/16 13:00 INR 1.05 (0.83-1.16) 04/13/16 13:00 - Physical Exam Constitutional: no apparent distress, appears nourished Eyes: PERRL, anicteric sclera Ears, Nose, Mouth, Throat: moist mucous membranes, ears appear normal Cardiovascular: regular rate and rhythym, no murmur, rub, or gallop, No irregularly irregular Respiratory: no respiratory distress, no rales or rhonchi Gastrointestinal: normoactive bowel sounds, soft, non-tender abdomen Genitourinary: no bladder fullness Skin: warm Musculoskeletal: other (no joint effusions) Neurologic: AAOx3 Psychiatric: interacting appropriately ICD10 Worksheet Patient Problems: Problems Problem Status Onset Altered mental status Acute
[2016-04-18] MEDS ORDERED: POLYETHYLENE GLYCOL 3350 17 GM PKT PO PRN (19:46)
[2016-04-18] MEDS ORDERED: LACTULOSE 20 GM/30 ML UDCUP PO PRN (19:47)
[2016-04-18] MEDS: APIXABAN 2.5 MG TAB PO SCH (21:16)
[2016-04-18] MEDS: METOPROLOL TARTRATE 25 MG TAB PO SCH (21:16)
[2016-04-19] MEDS: HEPARIN 5,000 UNIT/0.5 ML SYR SC SCH ×2 (00:11→05:07)
[2016-04-19] MEDS: LEVOTHYROXINE 50 MCG TAB PO SCH (04:59)
[2016-04-19 07:42] LABS: ANION GAP 13 mEq/L (8-16); CALCIUM 8.3 mg/dL (8.5-10.4); CARBON DIOXIDE 20 mEq/l (22-31); CHLORIDE 102 mEq/L (97-110); CREATININE 3.1 mg/dL (0.7-1.3); GLOMERULAR FILTRATION RATE 20; GLUCOSE 160 mg/dL (70-100); POTASSIUM 4.7 mEq/L (3.5-5.2); SODIUM 135 mEq/L (134-144)
[2016-04-19] MEDS: NIFEdipine ER 60 MG TAB PO SCH (08:31)
[2016-04-19] MEDS: ASPIRIN 81 MG CHEWABLE TAB PO SCH (08:31)
[2016-04-19] MEDS: METOPROLOL TARTRATE 25 MG TAB PO SCH (08:32)
[2016-04-19] MEDS: APIXABAN 2.5 MG TAB PO SCH (08:32)
[2016-04-19] MEDS: glipiZIDE 5 MG TAB PO SCH (08:32)
[2016-04-19] MEDS: ISOSORBIDE DINITRATE 20 MG TAB PO SCH (08:34)
[2016-04-19] MEDS: TAMSULOSIN HCL 0.4 MG CAP PO SCH (10:08)
[2016-04-19 11:37] VITALS: BP 125/72; PULSE 72; RESP 20; TEMP 98.7; O2SAT 95
--- NOTE | 2016-04-19 11:57 | PDDCSUM ---
Discharge Summary Discharge Summary: Dates of service: 04/13-04/19/16 Discharge diagnosis: # atrial fibrillation # htn # acute encephalopathy # bph # dann on ckd # hypothyroid # DM # elevated trop Consultations: cardiology, renal Procedures performed: echo, head/chest CT, abd/pelvis US, brain MRI, carotid doppler Hospital course by problem: # acute encephalopathy: thought to be hypertensive encephalopathy and resolved with improved bp control # atrial fibrillation: bb added, dc'ed on coumadin without bridge, rate controlled # uncontrolled htn: improved on nifedipine and nitrate, dc on same # bph: with h/o bph and turp, dc'ed on tamsulosin # dann on ckd: appreciate renal involvement, creatinine without improvement over course of hospitalization, seems to have plateaued in low 3's, likely related largely to hypertensive nephropathy, no need for HD urgently and patient non oliguric, will need to f/u with renal after dc # DM: with A1c of 8.6, will need ongoing management, has not been on hypoglycemic agents previously # elevated trop: without e/o ACS and likely related to HTN, EF preserved at 50- 55%, does have e/o diastolic dysfunction but largely euvolemic # hypothyroid: started on lt4, will need ongoing management # dispo: powerback for rehab F/u: with PCP, cardiology for ongoing mgmt of BP, a fib, DM; f/u with renal for ongoing mgmt of CKD Meds: see EHR > 35 minutes spent in dc of patient, more than half in coordination of care
--- NOTE | 2016-04-19 11:57 | PDIAF ---
- Diagnosis Code Status: Full Code - Medication Management Discharge Medications: Medications to Continue on Transfer Acetaminophen [Tylenol 325mg (*)] 650 mg PO Q4HRS PRN #0 tab 04/19/16 [Last Taken Unknown] Aspirin [Aspirin 81mg (*)] 81 mg PO DAILY #0 tab.chew 04/19/16 [Last Taken Unknown] Isosorbide Dinitrate [Isosorbide Dinitrate 20 mg (*)] 20 mg PO BIDNITRATE #0 tab 04/19/16 [Last Taken Unknown] Levothyroxine [Synthroid 50 mcg (*)] 50 mcg PO DAILY AT 6AM #0 tab 04/19/16 [ Last Taken Unknown] Metoprolol Tartrate [Lopressor 25 mg (*)] 12.5 mg PO BID #0 tab 04/19/16 [Last Taken Unknown] NIFEdipine ER [Adalat CC 60 mg (*)] 60 mg PO DAILY #0 tab 04/19/16 [Last Taken Unknown] Ondansetron Odt [Zofran Odt 4 mg (*)] 4 mg PO Q4HRS PRN #0 tab 04/19/16 [Last Taken Unknown] Polyethylene Glycol 3350 [Miralax 17 gm (*)] 17 gm PO BID PRN #0 pkt 04/19/16 [ Last Taken Unknown] Tamsulosin HCl [Flomax 0.4 MG (*)] 0.4 mg PO DAILY #0 cap 04/19/16 [Last Taken Unknown] Warfarin Sodium [Coumadin 5MG (*)] 5 mg PO DAILY16 #0 tab 04/19/16 [Last Taken Unknown] Discharge Medications: Refer to the Discharge Home Medication list for PRN reason. - Orders Services needed: Registered Nurse, Certified Traffic Rate Clerk, Physical Therapy, Occupational Therapy Diet Recommendation: cardiac -low fat low salt, ADA 2000 consistent carb Weigh Patient: weekly Additional: Coumadin started for stroke prevention in atrial fibrillation, goal INR between 2-3. No bridge needed. - Labs/Radiology BMP Date: 04/22/16 (q3 days) PT/INR Date: 04/20/16 (q2 days until INR between 2-3) - Follow Up Care Current Providers and Referrals: MONICA NAVA [Primary Care Provider] - As per Instructions
--- NOTE | 2016-04-19 13:22 | CPEKG ---
Heart Rate: 68 RR Interval: 882 P-R Interval: 204 QRSD Interval: 92 QT Interval: 424 QTC Interval: 451 P [place]: 37 QRS [place]: -49 T Wave [place]: 154 EKG Severity - ABNORMAL ECG - EKG Impression: SINUS RHYTHM EKG Impression: LEFT ANTERIOR FASCICULAR BLOCK EKG Impression: LEFT VENTRICULAR HYPERTROPHY EKG Impression: CONSIDER ANTERIOR INFARCT EKG Impression: ABNORMAL T, CONSIDER ISCHEMIA, LATERAL LEADS Electronically Signed By: Calderon Fried 19-Apr-2016 16:49:09
== END 2016-04-19 14:04 | DRG 305 ==
LOC: CED 12:07 → CEDHOLD 15:08 → F2N 18:39 → F2W 04-14 06:50
PROVIDERS: ADMIT Internal Medicine; ATTEND Internal Medicine
DX: I16.0 Hypertensive urgency (principal); I67.4 Hypertensive encephalopathy; N17.9 Acute kidney failure, unspecified; N18.4 Chronic kidney disease, stage 4 (severe); I48.91 Unspecified atrial fibrillation; I12.9 Hypertensive chronic kidney disease with stage 1 through stage 4 chronic kidney disease, or unspecified chronic kidney disease; N40.0 Benign prostatic hyperplasia without lower urinary tract symptoms; E03.9 Hypothyroidism, unspecified; E11.9 Type 2 diabetes mellitus without complications; M79.672 Pain in left foot; R91.1 Solitary pulmonary nodule; Z86.73 Personal history of transient ischemic attack (TIA), and cerebral infarction without residual deficits; Z91.14 Patient's other noncompliance with medication regimen
CPT/HCPCS: 70450-PO; 71020-PO; 80053-PO; 81003-PO; 81015-PO; 83605-PO; 83880-PO; 84484-PO; 85025-PO; 85610-PO; 85730-PO; 93010-PO; 97110-GP; 97116-GP; 97163-GP; 97165-GO; 97530-GO; 97530-GP; 97535-GO; 99205-PO; G0463-PO; J0360